=== PATIENT | female | born 1955 | race Caucasian/White ===

== ENCOUNTER → 2017-10-22 | Outpatient (CLI) | payer BC ==
[~2017-10-22] MED LIST: ALB18R INH; CYAN1000 IJ; CYAN1000 IM; DULO30CA35 PO; DULO60CA56 PO; FLUT16SP19 NS; FLUT1DIS28 IH; LOR1 PO; METH4TAB66 PO; MONT10TA PO
== END ==
LOC: LAB 08:00 → CT 15:00 → EDSTATUS 10-25 14:59
PROVIDERS: ATTEND Urology
DX: N20.0 Calculus of kidney (principal); R31.29 Other microscopic hematuria
CPT/HCPCS: 36415; 82565

== ENCOUNTER 2017-10-24 23:28 | Emergency (ER) | payer BC ==
--- NOTE | 2017-10-24 23:53 | ER Report ---
History and Physical Time Seen By : 23:45 Hx. of Stated Complaint: PATIENT STATES SHE HAS PAIN IN HER BACK; FEELS LIKE A ROCK; HASNT PEED SINCE 5 PM HPI/ROS CHIEF COMPLAINT: flank and abdominal pain, inability to urinate for 7 hours. HISTORY OF PRESENT ILLNESS: This is a 62 year old female. She is in severe pain. 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 Workup in process with Dr. Renee. She is scheduled to have a CT scan tomorrow morning and was in the process of doing her instructions for hydration tonight. Had 2 liters of fluid and has not been able to urinate. Having increased pressure in the bladder, across the lower abdomen in both directions and flank pain on the left. She denies fevers or chills. Is nauseated. Allergies: Coded Allergies: amitriptyline (Verified Allergy, Severe, SHORTNESS OF BREATH, 10/24/17) throat closed butorphanol (Verified Allergy, Severe, CONVULSIONS, 10/24/17) droperidol (Verified Allergy, Severe, Convulsions, 10/24/17) duloxetine (Verified Allergy, Severe, RASH, URINARY RETENTION, SHORTNESS OF BREATH, 10/24/17) metoclopramide (Verified Allergy, Intermediate, "[place]", 10/24/17) morphine (Verified Allergy, Intermediate, Severe Headache, Sleeplessness, Anxiety, 10/24/17) cat dander (Verified Allergy, Unknown, Unknown, 10/24/17) grass pollen (Verified Allergy, Unknown, Unknown, 10/24/17) "Justin Grass" Home Meds Active Scripts Methylprednisolone (METHYLPREDNISOLONE) 4 Mg Tab.ds.pk, 4 MG PO DIRECTED, #1 TAB Prov:ORALIA HALEY MD 07/07/17 Lorazepam (LORAZEPAM) 1 Mg Tab, 0.5-1 TAB PO BID Y for ANXIETY, #20 TAB Prov:ORALIA HALEY MD 07/07/17 Cyanocobalamin (Vitamin B-12) (CYANOCOBALAMIN INJECTION) 1,000 Mcg/1 Ml Vial, 1000 MCG IM DIRECTED, #4 VIAL 6 Refills 1000 mcg x once a week x 2 1000 mcg x EO week x 2 than once a month Prov:ORALIA HALEY MD 07/01/17 Reported Medications Albuterol Sulfate (VENTOLIN HFA) 18 Gm Inh, 1-2 PUFF INH 3-4XD Y for DYSPNEA, INH 06/14/17 Fluticasone/Salmeterol (ADVAIR 250-50 DISKUS) 1 Each Disk.w.dev, 1-2 SPRAY IH QDAY 06/14/17 Fluticasone Prop 50 Mcg Ns (FLONASE 50 MCG NS) 16 Gm [place].susp, 1-2 SPRAY NS BID, BOT 06/14/17 Montelukast Sodium (SINGULAIR) 10 Mg Tablet, 1 TAB PO QDAY, TAB 06/14/17 Reviewed Nurses Notes: Yes Smoking Status: Never Smoker Constitutional Vital Sign - Last 24 Hours 10/24/17 10/24/17 10/25/17 10/25/17 23:32 23:33 00:15 00:30 Temp 98.6 Pulse 111 Resp 18 B/P (MAP) 132/77 (95) 132/77 144/117 (126) 123/83 (96) Pulse Ox 96 O2 Delivery Room Air 10/25/17 10/25/17 10/25/17 10/25/17 01:00 01:05 01:30 01:51 Pulse 83 B/P (MAP) 123/76 (92) ???/??? (1665) 126/75 (92) Pulse Ox 94 10/25/17 10/25/17 10/25/17 10/25/17 02:00 02:05 02:30 02:48 Pulse 74 71 B/P (MAP) 113/80 (91) 103/59 (74) Pulse Ox 92 10/25/17 10/25/17 10/25/17 02:53 03:00 03:05 Pulse 66 70 B/P (MAP) 110/66 (81) Pulse Ox 91 97 Physical Exam General Appearance: The patient is alert. Acute distress because of pain. Eyes: Pupils are equal, round. No pallor, injection or icterus. ENT: Mucous membranes are moist. Normal oral mucosa. Posterior oropharynx is normal. Neck: Supple and non tender. Respiratory: Lungs are clear to auscultation. Cardiovascular: Regular rate and rhythm. No murmurs, gallops or rubs. Normal capillary refill. Gastrointestinal: Abdomen is soft, tender in the suprapubic and the left flank areas. Nondistended. Normal active bowel sounds. Some left, but no right costovertebral angle tenderness with percussion. Neurological: Alert and oriented x3. Skin: Warm and dry. Musculoskeletal: Extremities are nontender. DIFFERENTIAL DIAGNOSIS: After history and physical exam, differential diagnosis was considered for suprapubic and flank pain including but not limited to musculoskeletal causes, kidney stone, urinary infectious process and urinary retention. Medical Decision Making Data Points Result Diagram: 10/25/17 0002 10/25/17 0002 Laboratory Hematology Test 10/25/17 00:02 10/25/17 00:13 Red Blood Count 4.74 M/uL (4.17-5.56) Mean Corpuscular Volume 93.2 fL (80.0-96.0) Mean Corpuscular Hemoglobin 31.8 pg (26.0-33.0) Mean Corpuscular Hemoglobin Concent 34.1 g/dL (32.0-36.0) Red Cell Distribution Width 14.2 % (11.5-14.5) Mean Platelet Volume 8.9 fL (7.2-11.1) Neutrophils (%) (Auto) 74.9 % (39.4-72.5) Lymphocytes (%) (Auto) 16.6 % (17.6-49.6) Monocytes (%) (Auto) 5.7 % (4.1-12.4) Eosinophils (%) (Auto) 1.7 % (0.4-6.7) Basophils (%) (Auto) 1.1 % (0.3-1.4) Nucleated RBC Relative Count (auto) 0.0 /100WBC Neutrophils # (Auto) 7.8 K/uL (2.0-7.4) Lymphocytes # (Auto) 1.7 K/uL (1.3-3.6) Monocytes # (Auto) 0.6 K/uL (0.3-1.0) Eosinophils # (Auto) 0.2 K/uL (0.0-0.5) Basophils # (Auto) 0.1 K/uL (0.0-0.1) Nucleated RBC Absolute Count (auto) 0.01 K/uL Sodium Level 136 mmol/L (137-145) Potassium Level 3.7 mmol/L (3.5-5.0) Chloride Level 104 mmol/L (98-107) Carbon Dioxide Level 22 mmol/L (22-31) Blood Urea Nitrogen 22 mg/dl (7-18) Creatinine 0.70 mg/dl (0.52-1.04) Glomerular Filtration Rate Calc > 60.0 Random Glucose 95 mg/dl (75-110) Calcium Level 10.3 mg/dl (8.4-10.2) Total Bilirubin 0.3 mg/dl (0.2-1.3) Aspartate Amino Transf (AST/SGOT) 17 U/L (0-35) Alanine Aminotransferase (ALT/SGPT) 28 U/L (0-56) Alkaline Phosphatase 84 U/L (0-126) Total Protein 6.7 gm/dl (6.3-8.2) Albumin 3.8 g/dl (3.5-5.0) Urine Color Yellow Urine Clarity Slightly-cloudy Urine pH 5.0 pH (4.8-9.5) Urine Specific [place] 1.027 Urine Protein Negative mg/dL (NEGATIVE) Urine Glucose (UA) Negative mg/dL (NEGATIVE) Urine Ketones Trace mg/dL (NEGATIVE) Urine Blood Large (NEGATIVE) Urine Nitrite Negative (NEGATIVE) Urine Bilirubin Negative (NEGATIVE) Urine Urobilinogen 2.0 mg/dL (0.2-1.9) Urine Leukocyte Esterase Negative (NEGATIVE) Urine RBC 348 /HPF (0-2/HPF) Urine WBC 4 /HPF (0-5/HPF) Urine Squamous Epithelial Cells Many /LPF (NONE-FEW) Urine Bacteria Negative /HPF (NONE-FEW) Urine Hyaline Casts Few /LPF (NONE-FEW) Urine Mucus Few /HPF (NONE-FEW) Chemistry Test 10/25/17 00:02 10/25/17 00:13 White Blood Count 10.4 k/uL (4.5-11.0) Red Blood Count 4.74 M/uL (4.17-5.56) Hemoglobin 15.1 g/dL (12.0-16.0) Hematocrit 44.2 % (34.0-47.0) Mean Corpuscular Volume 93.2 fL (80.0-96.0) Mean Corpuscular Hemoglobin 31.8 pg (26.0-33.0) Mean Corpuscular Hemoglobin Concent 34.1 g/dL (32.0-36.0) Red Cell Distribution Width 14.2 % (11.5-14.5) Platelet Count 299 K/uL (150-450) Mean Platelet Volume 8.9 fL (7.2-11.1) Neutrophils (%) (Auto) 74.9 % (39.4-72.5) Lymphocytes (%) (Auto) 16.6 % (17.6-49.6) Monocytes (%) (Auto) 5.7 % (4.1-12.4) Eosinophils (%) (Auto) 1.7 % (0.4-6.7) Basophils (%) (Auto) 1.1 % (0.3-1.4) Nucleated RBC Relative Count (auto) 0.0 /100WBC Neutrophils # (Auto) 7.8 K/uL (2.0-7.4) Lymphocytes # (Auto) 1.7 K/uL (1.3-3.6) Monocytes # (Auto) 0.6 K/uL (0.3-1.0) Eosinophils # (Auto) 0.2 K/uL (0.0-0.5) Basophils # (Auto) 0.1 K/uL (0.0-0.1) Nucleated RBC Absolute Count (auto) 0.01 K/uL Glomerular Filtration Rate Calc > 60.0 Calcium Level 10.3 mg/dl (8.4-10.2) Total Bilirubin 0.3 mg/dl (0.2-1.3) Aspartate Amino Transf (AST/SGOT) 17 U/L (0-35) Alanine Aminotransferase (ALT/SGPT) 28 U/L (0-56) Alkaline Phosphatase 84 U/L (0-126) Total Protein 6.7 gm/dl (6.3-8.2) Albumin 3.8 g/dl (3.5-5.0) Urine Color Yellow Urine Clarity Slightly-cloudy Urine pH 5.0 pH (4.8-9.5) Urine Specific [place] 1.027 Urine Protein Negative mg/dL (NEGATIVE) Urine Glucose (UA) Negative mg/dL (NEGATIVE) Urine Ketones Trace mg/dL (NEGATIVE) Urine Blood Large (NEGATIVE) Urine Nitrite Negative (NEGATIVE) Urine Bilirubin Negative (NEGATIVE) Urine Urobilinogen 2.0 mg/dL (0.2-1.9) Urine Leukocyte Esterase Negative (NEGATIVE) Urine RBC 348 /HPF (0-2/HPF) Urine WBC 4 /HPF (0-5/HPF) Urine Squamous Epithelial Cells Many /LPF (NONE-FEW) Urine Bacteria Negative /HPF (NONE-FEW) Urine Hyaline Casts Few /LPF (NONE-FEW) Urine Mucus Few /HPF (NONE-FEW) Urinalysis Test 10/25/17 00:13 Urine Color Yellow Urine Clarity Slightly-cloudy Urine pH 5.0 pH (4.8-9.5) Urine Specific [place] 1.027 Urine Protein Negative mg/dL (NEGATIVE) Urine Glucose (UA) Negative mg/dL (NEGATIVE) Urine Ketones Trace mg/dL (NEGATIVE) Urine Blood Large (NEGATIVE) Urine Nitrite Negative (NEGATIVE) Urine Bilirubin Negative (NEGATIVE) Urine Urobilinogen 2.0 mg/dL (0.2-1.9) Urine Leukocyte Esterase Negative (NEGATIVE) Urine RBC 348 /HPF (0-2/HPF) Urine WBC 4 /HPF (0-5/HPF) Urine Squamous Epithelial Cells Many /LPF (NONE-FEW) Urine Bacteria Negative /HPF (NONE-FEW) Urine Hyaline Casts Few /LPF (NONE-FEW) Urine Mucus Few /HPF (NONE-FEW) Microbiology Microbiology Date/Time Source Procedure Growth Status 10/25/17 00:13 Cath Urine Urine Culture - Final No growth Complete EKG/Imaging Imaging EXAMINATION: CT abdomen and pelvis without and with IV contrast (CT urogram) HISTORY: Left flank pain. Bladder mass. TECHNIQUE: Axial CT images of the abdomen and pelvis were initially obtained without IV contrast. Axial CT images of the abdomen and pelvis were then obtained with IV contrast, utilizing a split bolus technique with combined nephrographic and excretory delayed imaging performed at 8 minutes. Coronal and sagittal 2D reconstructed images were obtained. One of the following dose optimization techniques was utilized in the performance of this exam: Automated exposure control; adjustment of the mA and/ or kV according to the patient's size; or use of an iterative reconstruction technique. Specific details can be referenced in the facility's radiology CT exam operational policy. Contrast: 125 mL of IV Isovue-370. COMPARISON: None. FINDINGS: Right kidney and ureter: Normal size and morphology of the right kidney, measuring 13.3 cm in length. No right-sided urinary calculi or hydronephrosis. Focal cortical scarring along the upper pole of the right kidney. There are small renal cysts, measuring up to 1.2 cm in the upper pole. No suspicious enhancing renal mass. The renal collecting system and ureter are well opacified and unremarkable on delayed imaging, without wall thickening or suspicious filling defect. Left kidney and ureter: Single punctate 1 mm nonobstructing calculus in the mid left kidney. Multifocal cortical scarring in the mid and upper left kidney. The left kidney measures 10.3 cm in length. There are several small cysts in the mid and upper left kidney, measuring up to 1.6 cm. There are 2 separate subcentimeter fat density lesions in the mid and lower left kidney, measuring up to 8 mm, compatible with small angiomyolipomas. There is a partially exophytic and hyperdense 1.1 cm lesion arising from the lower pole of the left kidney. This demonstrates no appreciable enhancement on postcontrast imaging and likely represents a small hemorrhagic cyst. No suspicious enhancing renal mass. No hydronephrosis. The renal collecting system and ureter are well opacified on delayed imaging, without suspicious filling defect. Urinary bladder: Mildly distended, with a Lambert catheter in place. No localized wall thickening or evidence of a bladder mass. Liver: There are multiple small cysts in the liver. This includes a dominant 3.5 cm cyst in the right hepatic lobe inferiorly, with additional subcentimeter cysts. Gallbladder and bile ducts: Cholecystectomy. No bile duct dilatation. Spleen: Calcified granulomas in the spleen. Pancreas: Negative. Adrenal glands: Negative. Bowel and peritoneum: The small bowel and colon are normal in caliber, without evidence of obstruction or any focal inflammatory process. Scattered colonic diverticulosis, without evidence of diverticulitis. Unremarkable appendix in the right lower abdomen. No free fluid or free intraperitoneal air. Small hiatal hernia. Pelvic structures: Hysterectomy. Lymph node assessment: Negative. Vessels: Scattered vascular calcifications. Normal caliber abdominal aorta. Musculoskeletal: Negative. Body wall: Small fat-containing umbilical hernia. Lung bases: Calcified granuloma in the left lower lobe. IMPRESSION: 1. Single punctate nonobstructing calculus in the left kidney. No hydronephrosis or obstructing calculi. 2. Multifocal cortical scarring in the upper left kidney. Left kidney contains several small cysts as well as 2 subcentimeter angiomyolipomas. No suspicious enhancing renal mass on either side. 3. Normal CT appearance of the urinary bladder, with a Lambert catheter in place. No visualized bladder mass. 4. No acute intra abdominal findings. 5. Prior cholecystectomy and hysterectomy. 6. Colonic diverticulosis. 7. Unremarkable appendix. 8. Small hiatal hernia. Report Dictated By: Jacob Campos MD at 10/25/2017 2:07 AMReport E-Signed By: Jacob Campos MD at 10/25/2017 2:23 AM ED Course/Re-evaluation Clinical Indication for ER IV: IV Access ED Course Lambert catheter placed with only a small amount of urine output. Blood on urinalysis but no sign of infection. Urine culture ordered. CBC and CMP unremarkable, normal kidney function. CT of the abdomen and pelvis were obtained , done according to what Dr. Renee was going to have done later today. See imaging above. No acute abnormality noted. Patient is feeling better with good urine output. No further pain. She will return home and follow-up with Dr. Renee. Decision to Disposition Date: Oct 25, 2017 Decision to Disposition Time: 03:19 Depart Departure Latest Vital Signs Vital Signs Date Time Temp Pulse Resp B/P (MAP) Pulse Ox O2 Delivery O2 Flow Rate FiO2 10/25/17 03:05 70 97 10/25/17 03:00 110/66 (81) 10/24/17 23:33 98.6 18 Room Air Impression: Primary Impression: Flank pain, acute Condition: Improved Disposition: HOME OR SELF-CARE Referrals: ORALIA HALEY MD (PCP) Patient Instructions: Flank Pain (ED) Additional Instructions: Please call Dr. Renee later this morning and let him know you were here in the ER tonight. He will help decide what follow-up you need. We are providing a take-home pack of Lortab 5/325, take one every 4 hours as needed for pain. Zofran 4mg oral dissolving tablet, take one every 6 hours as needed for nausea. Return to the ER for re-evaluation if needed for recurrence of severe pain. KELL NICHOLS MD Oct 24, 2017 23:53
[2017-10-25] MEDS ORDERED: HYDROmorphone* 1 MG/ML 1 MG/ML ML IVP ONE ×2 (00:05→00:55)
[2017-10-25] MEDS ORDERED: ONDANSETRON 4 MG/2 ML VIAL IVP ONE (00:05)
[2017-10-25] MEDS ORDERED: IOPAMIDOL 76% 75 ML INFUS BTL 75 ML ONE (01:01)
[2017-10-25] MEDS ORDERED: IOPAMIDOL 76% 50 ML INFUS BTL 50 ML ONE (01:31)
--- NOTE | 2017-10-25 02:27 | RADIOLOGY IMAGING REPORT ---
[place] [facility] [place] NAME: Hailey Hampton : 1955 MR: [id number] V: [id number] EXAM DATE: ORDERING PHYSICIAN: KELL NICHOLS TECHNOLOGIST: Location: [facility] Patient: Hailey Hampton : 1955 Visit/Account:[id number] Date of Sevice: 10/25/2017 ADDENDUM #1 ADDENDUM: At the provider's request, I have reviewed the CT scan from 10/25/2017. Additional findings include several calcifications measuring less than 5 mm in diameter in the upper and lower poles of the left kidney, and two calcifications measuring less than 3 mm in diameter in the right side of the urinary bladder. Report Dictated By: Hong Quick MD at 10/25/2017 12:18 PM Report E-Signed By: Hong Quick MD at 10/25/2017 12:22 PM ORIGINAL REPORT EXAMINATION: CT abdomen and pelvis without and with IV contrast (CT urogram) HISTORY: Left flank pain. Bladder mass. TECHNIQUE: Axial CT images of the abdomen and pelvis were initially obtained without IV contrast. Axial CT imag es of the abdomen and pelvis were then obtained with IV contrast, utilizing a split bolus technique w ith combined nephrographic and excretory delayed imaging performed at 8 minutes. Coronal and sagitta l 2D reconstructed images were obtained. One of the following dose optimization techniques was utilized in the performance of this exam: Autom ated exposure control; adjustment of the mA and/or kV according to the patient's size; or use of an i terative reconstruction technique. Specific details can be referenced in the facility's radiology C T exam operational policy. Contrast: 125 mL of IV Isovue-370. COMPARISON: None. FINDINGS: Right kidney and ureter: Normal size and morphology of the right kidney, measuring 13.3 cm in length. No right-sided urinary calculi or hydronephrosis. Focal cortical scarring along the upper pole of th e right kidney. There are small renal cysts, measuring up to 1.2 cm in the upper pole. No suspicious enhancing renal mass. The renal collecting system and ureter are well opacified and unremarkable on d elayed imaging, without wall thickening or suspicious filling defect. Left kidney and ureter: Single punctate 1 mm nonobstructing calculus in the mid left kidney. Multifoc al cortical scarring in the mid and upper left kidney. The left kidney measures 10.3 cm in length. Th ere are several small cysts in the mid and upper left kidney, measuring up to 1.6 cm. There are 2 sep arate subcentimeter fat density lesions in the mid and lower left kidney, measuring up to 8 mm, kj tible with small angiomyolipomas. There is a partially exophytic and hyperdense 1.1 cm lesion arising from the lower pole of the left kidney. This demonstrates no appreciable enhancement on postcontrast imaging and likely represents a small hemorrhagic cyst. No suspicious enhancing renal mass. No hydro nephrosis. The renal collecting system and ureter are well opacified on delayed imaging, without susp icious filling defect. Urinary bladder: Mildly distended, with a Lambert catheter in place. No localized wall thickening or ev idence of a bladder mass. Liver: There are multiple small cysts in the liver. This includes a dominant 3.5 cm cyst in the righ t hepatic lobe inferiorly, with additional subcentimeter cysts. Gallbladder and bile ducts: Cholecystectomy. No bile duct dilatation. Spleen: Calcified granulomas in the spleen. Pancreas: Negative. Adrenal glands: Negative. Bowel and peritoneum: The small bowel and colon are normal in caliber, without evidence of obstructi on or any focal inflammatory process. Scattered colonic diverticulosis, without evidence of diverticu litis. Unremarkable appendix in the right lower abdomen. No free fluid or free intraperitoneal air. S mall hiatal hernia. Pelvic structures: Hysterectomy. Lymph node assessment: Negative. Vessels: Scattered vascular calcifications. Normal caliber abdominal aorta. Musculoskeletal: Negative. Body wall: Small fat-c ntaining umbilical hernia. Lung bases: Calcified granuloma in the left lower lobe. IMPRESSION: 1. Single punctate nonobstructing calculus in the left kidney. No hydronephrosis or obstructing calcu li.2. Multifocal cortical scarring in the upper left kidney. Left kidney contains several small cysts as well as 2 subcentimeter angiomyolipomas. No suspicious enhancing renal mass on either side. 3. Normal CT appearance of the urinary bladder, with a Lambert catheter in place. No visualized bladder mass. 4. No acute intra-abdominal findings. 5. Prior cholecystectomy and hysterectomy. 6. Colonic diverticulosis. 7. Unremarkable appendix. 8. Small hiatal hernia. Report Dictated By: Jacob Campos MD at 10/25/2017 2:07 AM Report E-Signed By: Jacob Campos MD at 10/25/2017 2:23 AM WSN:[id number]
[2017-10-25 02:45] LABS: PLATELET COUNT, AUTOMATED 299 K/uL (150-450)
[2017-10-25 03:00] VITALS: BP 110/66
[2017-10-25] MEDS ORDERED: ACET/HYDROC 5/325MG TH ER ONLY 2 TAB/BOTTLE PO ONE (03:20)
[2017-10-25] MEDS ORDERED: ONDANSETRON 4 MG ODT TH SL ONE (03:20)
== END 2017-10-25 03:31 | disposition home or self-care (01) ==
LOC: ER 10-25 00:09
DX: R10.30 Lower abdominal pain, unspecified (principal); N28.89 Other specified disorders of kidney and ureter; N32.89 Other specified disorders of bladder; N28.1 Cyst of kidney, acquired; K57.30 Diverticulosis of large intestine without perforation or abscess without bleeding; K44.9 Diaphragmatic hernia without obstruction or gangrene
CPT/HCPCS: 74178; 81001; 85025; 87088; 96374; 96375; 96376; 99284; J1170; J2405; Q9967; S0119; 82040; 82247; 82310; 82374; 82435; 82565; 82947; 84075; 84132; 84155; 84295; 84450; 84460; 84520

== ENCOUNTER → 2017-10-26 | Outpatient (REF) | payer BC | LOC: ZZSENDIN 11:40 | PROVIDERS: ATTEND Urology | DX: R31.1 Benign essential microscopic hematuria (principal) | CPT/HCPCS: 88108 ==

== ENCOUNTER → 2018-01-21 | Outpatient (CLI) | payer BC ==
[~2018-01-21] MED LIST changes: +IOPAMIDOL 76% 150 ML INFUS BTL 150 ML ONE; +IOPAMIDOL 76% 75 ML INFUS BTL 0 ML ONE; +NS 0.9% 25 ML BAG 75 ML ONE
--- NOTE | 2018-01-21 17:05 | RADIOLOGY IMAGING REPORT ---
FACILITY: PATIENT NAME: Hailey Hampton : 1955 MR: [id number] V: [id number] EXAM DATE: ORDERING PHYSICIAN: CHARLINE HUGHES TECHNOLOGIST: Location: [facility] Patient: Hailey Hampton : 1955 Visit/Account:[id number] Date of Sevice: 01/21/2018 ABDOMEN/PELVIS W/WO CONTRAST EXAMINATION: CT Abdomen W/O Contrast CT Abdomen W/ Contrast CT Pelvis W/O Contrast CT Pelvis W/ Contrast HISTORY: Bosniak 2 renal cysts, microhematuria TECHNIQUE: CT Urogram Protocol: The patient received preliminary hydration. A non-intravenous contrast enhanced spiral scan was obtained of the kidneys, ureters and bladder. Pos t intravenous contrast enhanced spiral scan of the kidneys, ureters and bladder was obtained between 7 and 8 minutes post injection in the supine position. One of the following dose optimization techniques was utilized in the performance of this exam: Autom ated exposure control; adjustment of the mA and/or kV according to the patient's size; or use of an i terative reconstruction technique. Specific details can be referenced in the facility's radiology C T exam operational policy. Contrast: 125 cc mL of IV Isovue-370 COMPARISON STUDIES: CT scan 10/25/2017 FINDINGS: Please note that this examination was tailored for detailed assessment of the kidneys, ureters and bl adder. Portions of the upper abdominal viscera may not be included. Kidneys: Several small nonobstructing stones are noted in the left kidney. There is a dilated calyx superior pole left kidney with some nonobstructing stones. Stones measure up to 3 mm. Some benign renal lesions are also identified. 7 mm benign fatty angiomyolipoma is noted midpole left kidney image 55. Several tiny fatty angiomyolipomas are noted midpole right kidney measuring 1 to 2 mm. 4 mm angiomyolipoma superior pole right kidney is noted image 33. Some benign renal cortical cysts are also noted. High density likely proteinaceous or hemorrhagic cys t lower pole left kidney measures 7 mm and is stable. Dilated left renal calyx is noted likely from p rior scarring. Some surrounding benign cyst midpole left kidney are stable. Ureters: Single patent ureters are documented the bladder. Bladder: Negative Liver / biliary: Gallbladder is absent. There is fatty infiltration of liver. Scattered benign hepat ic cysts are noted largest in segment 5 measures 3.9 x 3.7 cm Pancreas: Negative Spleen: Calcified granulomas are noted in the spleen. Adrenal glands: Fullness of the adrenal glands likely reflects hyperplasia. Pelvic structures: Negative Bowel / peritoneum / mesentery: There is colonic diverticulosis. Small hiatal hernia is noted. Vessels: Atherosclerotic calcification of the aorta and iliac vessels is noted. Musculoskeletal / Body wall: Negative Lymph node assessment: Negative Lower chest: Calcified granuloma left lower lobe is noted. IMPRESSION: 1. Small nonobstructing stones are noted in the left kidney measuring up to 3 mm. No obstructing re nal or ureteral stones. 2. Renal cortical scarring of the left kidney and several dilated calyces are noted. 3. Scattered small benign renal angiomyolipomas in both kidneys described above. In addition there ar e some benign cysts in the left kidney. No concerning renal or urothelial masses. 4. Numerous other chronic findings detailed above. Report Dictated By: Shalom Lazaro MD at 01/21/2018 4:45 PM Report E-Signed By: Shalom Lazaro MD at 01/21/2018 5:01 PM WSN:[email or web address]
== END ==
LOC: CT 02:07
PROVIDERS: ATTEND Urology
DX: N20.0 Calculus of kidney (principal); N28.89 Other specified disorders of kidney and ureter; N28.1 Cyst of kidney, acquired
CPT/HCPCS: 36415; 74178; 82565; Q9967

== ENCOUNTER 2018-01-25 15:00 | Emergency (ER) | payer BC ==
[~2018-01-25 15:00] MED LIST changes: -IOPAMIDOL 76% 150 ML INFUS BTL 150 ML ONE; -IOPAMIDOL 76% 75 ML INFUS BTL 0 ML ONE; -NS 0.9% 25 ML BAG 75 ML ONE
--- NOTE | 2018-01-25 15:09 | ER Report ---
History and Physical Time Seen By : 15:09 Hx. of Stated Complaint: irregular heart rate sob x 2 weeks HPI/ROS Patient is a 62-year-old female has a history of regular heartbeat has had PACs in the past states that she was out working in the garden she has seasonal allergies felt like her seasonal allergies were worse than usual thought she was having palpitations at the time those have since stopped M is asymptomatic presently Remainder of the 14 system rev: Yes Allergies: Coded Allergies: amitriptyline (Verified Allergy, Severe, SHORTNESS OF BREATH, 01/25/18) throat closed butorphanol (Verified Allergy, Severe, CONVULSIONS, 01/25/18) droperidol (Verified Allergy, Severe, Convulsions, 01/25/18) duloxetine (Verified Allergy, Severe, RASH, URINARY RETENTION, SHORTNESS OF BREATH, 01/25/18) metoclopramide (Verified Allergy, Intermediate, "Wry Neck", 01/25/18) morphine (Verified Allergy, Intermediate, Severe Headache, Sleeplessness, Anxiety, 01/25/18) cat dander (Verified Allergy, Unknown, Unknown, 01/25/18) grass pollen (Verified Allergy, Unknown, Unknown, 01/25/18) "Justin Grass" Home Meds Active Scripts Lorazepam (LORAZEPAM) 1 Mg Tab, 0.5-1 TAB PO BID Y for ANXIETY, #20 TAB Prov:ORALIA HALEY MD 07/07/17 Cyanocobalamin (Vitamin B-12) (CYANOCOBALAMIN INJECTION) 1,000 Mcg/1 Ml Vial, 1000 MCG IM DIRECTED, #4 VIAL 6 Refills 1000 mcg x once a week x 2 1000 mcg x EO week x 2 than once a month Prov:ORALIA HALEY MD 07/01/17 Reported Medications Hydroxychloroquine Sulfate (HYDROXYCHLOROQUINE SULFATE) 200 Mg Tablet, BID 01/25/18 Ondansetron (ONDANSETRON ODT) 4 Mg Tab.rapdis, PRN 01/25/18 Albuterol Sulfate (VENTOLIN HFA) 18 Gm Inh, 1-2 PUFF INH 3-4XD Y for DYSPNEA, INH 06/14/17 Fluticasone/Salmeterol (ADVAIR 250-50 DISKUS) 1 Each Disk.w.dev, 1-2 SPRAY IH QDAY 06/14/17 Fluticasone Prop 50 Mcg Ns (FLONASE 50 MCG NS) 16 Gm [place].susp, 1-2 SPRAY NS BID, BOT 06/14/17 Montelukast Sodium (SINGULAIR) 10 Mg Tablet, 1 TAB PO QDAY, TAB 06/14/17 Discontinued Scripts Methylprednisolone (METHYLPREDNISOLONE) 4 Mg Tab.ds.pk, 4 MG PO DIRECTED, #1 TAB Prov:ORALIA HALEY MD 07/07/17 Past Medical/Surgical History History kidney stones, PACs, allergic rhinitis, had a right mesh repair in the lung for a bleb Reviewed Nurses Notes: Yes Old Medical Records Reviewed: Yes Smoking Status: Never Smoker Hx Substance Use Disorder: No Hx Alcohol Use: No Family History of: HTN Constitutional Vital Sign - Last 24 Hours 01/25/18 01/25/18 01/25/18 01/25/18 15:05 15:07 15:15 15:30 Temp 99.3 Pulse 88 77 81 Resp 16 B/P (MAP) 138/102 138/102 (114) 141/91 (108) Pulse Ox 95 95 90 O2 Delivery Room Air 01/25/18 01/25/18 01/25/18 01/25/18 15:35 15:50 15:55 16:00 Pulse 68 80 B/P (MAP) 120/68 (85) Pulse Ox 93 96 94 01/25/18 01/25/18 01/25/18 01/25/18 16:10 16:25 16:30 16:45 Pulse 69 63 58 63 Resp 16 B/P (MAP) 118/68 (85) Pulse Ox 92 93 94 01/25/18 01/25/18 01/25/18 01/25/18 16:45 16:51 17:15 17:30 Pulse 65 70 69 Resp 16 B/P (MAP) 95/87 (90) Pulse Ox 94 88 86 O2 Delivery Room Air 01/25/18 01/25/18 01/25/18 01/25/18 17:35 17:50 18:00 18:05 Pulse 67 77 71 B/P (MAP) 117/81 (93) Pulse Ox 94 92 91 01/25/18 01/25/18 01/25/18 01/25/18 18:10 18:15 18:20 18:21 Pulse 63 64 71 B/P (MAP) 121/73 (89) Pulse Ox 92 93 94 Intake and Output 01/25/18 01/25/18 01/26/18 15:00 23:00 07:00 Intake Total 1000 ml Balance 1000 ml Physical Exam Patient 62-year-old female alert oriented anxious HNT has normocephalic/ atraumatic tympanic membranes are non-reddened throat is non-reddened neck is supple no JVD heart rate occasional irregularity lungs are clear laterally abdomen is soft bowel sounds 4 quadrants moves all extremities no peripheral pulses Medical Decision Making Data Points Result Diagram: 01/25/18 1518 01/25/18 1518 Laboratory Hematology Test 01/25/18 15:18 01/25/18 17:44 Red Blood Count 4.66 M/uL (4.17-5.56) Mean Corpuscular Volume 93.0 fL (80.0-96.0) Mean Corpuscular Hemoglobin 32.3 pg (26.0-33.0) Mean Corpuscular Hemoglobin Concent 34.7 g/dL (32.0-36.0) Red Cell Distribution Width 13.8 % (11.5-14.5) Mean Platelet Volume 9.2 fL (7.2-11.1) Neutrophils (%) (Auto) 66.7 % (39.4-72.5) Lymphocytes (%) (Auto) 24.7 % (17.6-49.6) Monocytes (%) (Auto) 5.9 % (4.1-12.4) Eosinophils (%) (Auto) 1.5 % (0.4-6.7) Basophils (%) (Auto) 1.2 % (0.3-1.4) Nucleated RBC Relative Count (auto) 0.1 /100WBC Neutrophils # (Auto) 4.5 K/uL (2.0-7.4) Lymphocytes # (Auto) 1.7 K/uL (1.3-3.6) Monocytes # (Auto) 0.4 K/uL (0.3-1.0) Eosinophils # (Auto) 0.1 K/uL (0.0-0.5) Basophils # (Auto) 0.1 K/uL (0.0-0.1) Nucleated RBC Absolute Count (auto) 0.00 K/uL Activated Partial Thromboplast Time 27 seconds (23-35) D-Dimer Quantitative (PE/DVT) < 0.27 ug/ml (0-0.50) Sodium Level 139 mmol/L (137-145) Potassium Level 4.2 mmol/L (3.5-5.0) Chloride Level 106 mmol/L (98-107) Carbon Dioxide Level 24 mmol/L (22-31) Blood Urea Nitrogen 11 mg/dl (7-18) Creatinine 0.70 mg/dl (0.52-1.04) Glomerular Filtration Rate Calc > 60.0 Random Glucose 106 mg/dl (75-110) Calcium Level 10.3 mg/dl (8.4-10.2) Total Bilirubin 0.6 mg/dl (0.2-1.3) Aspartate Amino Transf (AST/SGOT) 18 U/L (0-35) Alanine Aminotransferase (ALT/SGPT) 23 U/L (0-56) Alkaline Phosphatase 89 U/L (0-126) B-Type Natriuretic Peptide 115 pg/ml (0-100) Total Protein 6.4 g/dl (6.3-8.2) Albumin 3.8 g/dl (3.5-5.0) Troponin I < 0.012 ng/ml Chemistry Test 01/25/18 15:18 01/25/18 17:44 White Blood Count 6.8 k/uL (4.5-11.0) Red Blood Count 4.66 M/uL (4.17-5.56) Hemoglobin 15.1 g/dL (12.0-16.0) Hematocrit 43.3 % (34.0-47.0) Mean Corpuscular Volume 93.0 fL (80.0-96.0) Mean Corpuscular Hemoglobin 32.3 pg (26.0-33.0) Mean Corpuscular Hemoglobin Concent 34.7 g/dL (32.0-36.0) Red Cell Distribution Width 13.8 % (11.5-14.5) Platelet Count 271 K/uL (150-450) Mean Platelet Volume 9.2 fL (7.2-11.1) Neutrophils (%) (Auto) 66.7 % (39.4-72.5) Lymphocytes (%) (Auto) 24.7 % (17.6-49.6) Monocytes (%) (Auto) 5.9 % (4.1-12.4) Eosinophils (%) (Auto) 1.5 % (0.4-6.7) Basophils (%) (Auto) 1.2 % (0.3-1.4) Nucleated RBC Relative Count (auto) 0.1 /100WBC Neutrophils # (Auto) 4.5 K/uL (2.0-7.4) Lymphocytes # (Auto) 1.7 K/uL (1.3-3.6) Monocytes # (Auto) 0.4 K/uL (0.3-1.0) Eosinophils # (Auto) 0.1 K/uL (0.0-0.5) Basophils # (Auto) 0.1 K/uL (0.0-0.1) Nucleated RBC Absolute Count (auto) 0.00 K/uL Activated Partial Thromboplast Time 27 seconds (23-35) D-Dimer Quantitative (PE/DVT) < 0.27 ug/ml (0-0.50) Glomerular Filtration Rate Calc > 60.0 Calcium Level 10.3 mg/dl (8.4-10.2) Total Bilirubin 0.6 mg/dl (0.2-1.3) Aspartate Amino Transf (AST/SGOT) 18 U/L (0-35) Alanine Aminotransferase (ALT/SGPT) 23 U/L (0-56) Alkaline Phosphatase 89 U/L (0-126) B-Type Natriuretic Peptide 115 pg/ml (0-100) Total Protein 6.4 g/dl (6.3-8.2) Albumin 3.8 g/dl (3.5-5.0) Troponin I < 0.012 ng/ml Coagulation Test 01/25/18 15:18 Activated Partial Thromboplast Time 27 seconds D-Dimer Quantitative (PE/DVT) < 0.27 ug/ml EKG/Imaging EKG Interpretation EKG 1528 normal sinus rhythm ventricular rate 82 QTCs 446 2nd EKG at 1730 to normal sinus ventricular rate 67 QTCs 452 Monitor Interpretation: Normal Sinus Rhythm ED Course/Re-evaluation Clinical Indication for ER IV: Hydration ED Course Initial lab work is normal patient states she did not take all her allergy meds this morning she feels maybe working in the garden that this may be allergic rhinitis flare is asymptomatic currently we'll give her a albuterol neb which she takes occasionally for her allergic symptoms I'm see if this makes her feel any better will repeat an EKG and troponin 2 hours Re-evaluation KAREN DIAGNOSIS BNP WAS SLIGHTLY ELEVATED WILL SEND TO PCP FOR ECHO AND FURTHER EVAL AND TREATMENT Decision to Disposition Date: Jan 25, 2018 Decision to Disposition Time: 18:15 Depart Departure Latest Vital Signs Vital Signs Date Time Temp Pulse Resp B/P (MAP) Pulse Ox O2 Delivery O2 Flow Rate FiO2 01/25/18 18:21 121/73 (89) 01/25/18 18:20 71 94 01/25/18 16:51 16 01/25/18 16:45 Room Air 01/25/18 15:05 99.3 Impression: Primary Impression: Anxiety and depression Additional Impression: Asthma Condition: Improved Disposition: HOME OR SELF-CARE Referrals: ORALIA HALEY MD (PCP) CARDIOLOGY 1 Week Problem Qualifiers CIERA GAN Jan 25, 2018 15:09
[2018-01-25] MEDS ORDERED: ONDA4TAB9 (15:12)
[2018-01-25] MEDS ORDERED: HYDR200T42 (15:12)
[2018-01-25] MEDS ORDERED: NS(*) 0.9% 1000 ML BAG 1,000 ML IV ONE (15:16)
[2018-01-25] MEDS ORDERED: ASPIRIN 81 MG CHEW PO ONE (15:20)
--- NOTE | 2018-01-25 15:34 | EKG ---
FACILITY: [facility] - [place] PATIENT NAME: JANET SIFUENTES : [id number] MR: [id number] V: [id number] EXAM DATE: ORDERING PHYSICIAN: CIERA GAN TECHNOLOGIST: DAVID Brito Reason : Blood Pressure : / mmHG Vent. Rate : 082 BPM Atrial Rate : 082 BPM P-R Int : 144 ms QRS Dur : 084 ms QT Int : 382 ms P-R-T Axes : 045 -07 062 degrees QTc Int : 446 ms Sinus rhythm Possible left atrial enlargement Poor R wave progression anteriorly Borderline left axis Abnormal ECG Confirmed by GELACIO DANIELLE ([id number]) on 01/25/2018 6:20:31 PM Referred By: Confirmed By:GELACIO DANIELLE
--- NOTE | 2018-01-25 15:52 | RADIOLOGY IMAGING REPORT ---
FACILITY: [facility] - [place] PATIENT NAME: Hailey Hampton : 1955 MR: [id number] V: [id number] EXAM DATE: ORDERING PHYSICIAN: CIERA GAN TECHNOLOGIST: Location: [facility] Patient: Hailey Hampton : 1955 Visit/Account:[id number] Date of Sevice: 01/25/2018 Exam type: CHEST SINGLE AP History: Chest Pain Comparison: June 14, 2017. Findings: Again noted is mild hyperexpansion of the lung liriano. There is mild chronic blunting of left costop hrenic angle. Calcified granulomas in the left lung base again noted. There is no evidence of acute appearing infiltrates, pleural effusions or pulmonary edema. Mild interstitial prominence of the summer ngs again noted IMPRESSION: 1. Hyperexpansion the lung liriano and mild interstitial prominence appears similar to the prior stud y although no evidence of acute pulmonary consolidation Report Dictated By: Ghazal Foley MD at 01/25/2018 3:46 PM Report E-Signed By: Ghazal Foley MD at 01/25/2018 3:48 PM WSN:[email or web address]
[2018-01-25 16:02] LABS: PLATELET COUNT, AUTOMATED 271 K/uL (150-450)
[2018-01-25] MEDS ORDERED: ALBUTEROL 2.5 MG/3 ML NEB NEB ONE (16:40)
[2018-01-25] MEDS ORDERED: FUROSEMIDE 20 MG TAB PO ONE (17:30)
[2018-01-25 18:21] VITALS: BP 121/73
--- NOTE | 2018-01-25 18:36 | EKG ---
FACILITY: [facility] PATIENT NAME: JANET SIFUENTES : [id number] MR: [id number] V: [id number] EXAM DATE: ORDERING PHYSICIAN: CIERA GAN TECHNOLOGIST: Test Reason : Blood Pressure : / mmHG Vent. Rate : 067 BPM Atrial Rate : 067 BPM P-R Int : 144 ms QRS Dur : 086 ms QT Int : 428 ms P-R-T Axes : 053 047 069 degrees QTc Int : 452 ms Sinus arrhythmia Decreased R wave progression anteriorly When compared with ECG of 25-JAN-2018 15:28, No significant change was found Confirmed by GELACIO DANIELLE ([id number]) on 01/25/2018 7:41:29 PM Referred By: Confirmed By:GELACIO DANIELLE
== END 2018-01-25 18:25 | disposition home or self-care (01) ==
LOC: ER 15:27
DX: J45.909 Unspecified asthma, uncomplicated (principal); F41.9 Anxiety disorder, unspecified; F32.9 Major depressive disorder, single episode, unspecified
CPT/HCPCS: 71045; 83880; 84484; 85025; 85379; 85730; 93005; 94640; 96360; 96361; 99284; J7030; J7613; 82040; 82247; 82310; 82374; 82435; 82565; 82947; 84075; 84132; 84155; 84295; 84450; 84460; 84520

== ENCOUNTER → 2018-03-15 | Outpatient (CLI) | payer BC ==
[~2018-03-15] MED LIST changes: +HYDR200T42; +ONDA4TAB9
--- NOTE | 2018-03-17 16:38 | RT HOLTER TEST ---
FACILITY: [facility] - [place] PATIENT NAME: JANET SIFUENTES : [id number] MR: [id number] V: [id number] EXAM DATE: ORDERING PHYSICIAN: CARLA BOWMAN TECHNOLOGIST: Hoa Hook-up date: 2018-03-15 10:58:00 Duration: 47:59:00 Test Indications: CP/PVC Medications: ON FILE 618450 QRS complexes 80452 Ventricular ectopics which represent 9 % of total QRS comp. 519 Supraventricular ectopics which represent <1 % of total QRS comp. * Paced QRS complexes which represent % of total QRS comp. VENTRICULAR ECTOPY 52227 Isolated 3774 Bigeminal Cycles 381 Couplets 17 Runs 51 Beats in Runs 3 Beats LONGEST at 140 BPM at 11:18:48 2018-03-15 3 Beats FASTEST at 205 BPM at 18:15:44 2018-03-16 SUPRAVENTRICULAR ECTOPY 516 Isolated 0 Couplets 1 Runs 3 Beats in Runs 3 Beats LONGEST at 150 BPM at 22:56:27 2018-03-15 3 Beats FASTEST at 150 BPM at 22:56:27 2018-03-15 HEART RATES 51 MIN at 04:52:37 2018-03-16 89 AVG 157 MAX at 15:25:26 2018-03-16 LONGEST RR 1.480 secs at 03:50:45 2018-03-16 S-T LEVELS Channel 1 -12.800 mm MIN at 10:58:00 2018-03-15 -12.800 mm MAX at 10:58:00 2018-03-15 Channel 2 -12.800 mm MIN at 10:58:00 2018-03-15 -12.800 mm MAX at 10:58:00 2018-03-15 Channel 3 -12.800 mm MIN at 10:58:00 2018-03-15 -12.800 mm MAX at 10:58:00 2018-03-15 Occasional supraventricular ectopy with one short run of three beats. Frequent ventricular ectopy with frequent bigeminy and many couplets. Several three beat runs were al so recorded. No pauses were recorded. Confirmed by GELACIO DANIELLE ([id number]) on 03/17/2018 4:38:25 PM Referred By: Overread By: GELACIO DANIELLE
== END ==
LOC: RESP 01:26
PROVIDERS: ATTEND Internal Medicine Cardiovascular Disease
DX: I20.8 Other forms of angina pectoris (principal); R06.09 Other forms of dyspnea
CPT/HCPCS: 93017; 93225; 93325; 93350

== ENCOUNTER → 2018-05-30 | Outpatient (CLI) | payer BC | LOC: RESP 01:29 | PROVIDERS: ATTEND Internal Medicine | DX: J98.4 Other disorders of lung (principal) | CPT/HCPCS: 94060; 94726; 94729 ==

== ENCOUNTER → 2018-05-30 | Outpatient (CLI) | payer BC ==
[2018-05-30 11:58] LABS: LDL CHOLESTEROL 111 mg/dl
== END ==
LOC: LAB 10:09
PROVIDERS: ATTEND Internal Medicine Cardiovascular Disease
DX: I20.8 Other forms of angina pectoris (principal); R06.09 Other forms of dyspnea; R00.2 Palpitations
CPT/HCPCS: 36415; 82040; 82247; 82310; 82374; 82435; 82465; 82565; 82947; 83718; 84075; 84132; 84155; 84295; 84450; 84460; 84478; 84520; 85027

== ENCOUNTER → 2018-06-28 | Outpatient (CLI) | payer BC ==
--- NOTE | 2018-06-28 15:48 | RADIOLOGY IMAGING REPORT ---
FACILITY: [facility] - [place] PATIENT NAME: Hailey Hampton : 1955 MR: [id number] V: [id number] EXAM DATE: ORDERING PHYSICIAN: CHARLINE HUGHES TECHNOLOGIST: Location: [facility] Patient: Hailey Hampton : 1955 Visit/Account:[id number] Date of Sevice: 06/28/2018 KIDNEYS HISTORY: Kidney stones COMPARISON: None FINDINGS: Kidneys: Right kidney- 12.49 cm in length with normal renal parenchyma. No evidence of hydronephrosis. There is a benign simple cyst in the upper pole, 1.5 cm.. Left kidney- 12.1 cm in length with no evidence of hydronephrosis. There is a well-circumscribed ech ogenic lesion, with isoechoic through-transmission in the midportion that measures 1.0 cm. There is a cyst in the midpole, which is anechoic and measures 2.1 cm. There is no suspicious mass.. Uniform and symmetric blood flow in each kidney by Doppler ultrasound. Hydronephrosis: None. Bladder: Unremarkable. Abdominal aorta and IVC: Patent by Doppler ultrasound. IMPRESSION: 1. Several small cysts in the left kidney. These are unchanged from comparison CT abdomen and pelvi s 01/21/2018. 2. Interval cyst right kidney. 2. No evidence of right or left suspicious mass. Report Dictated By: Leo Saavedra at 06/28/2018 3:39 PM Report E-Signed By: Leo Saavedra at 06/28/2018 3:43 PM WSN:[email or web address]
== END ==
LOC: US 00:39
PROVIDERS: ATTEND Urology
DX: N20.0 Calculus of kidney (principal); N28.1 Cyst of kidney, acquired; N28.89 Other specified disorders of kidney and ureter; R31.29 Other microscopic hematuria
CPT/HCPCS: 76705

== ENCOUNTER → 2019-01-16 | Outpatient (CLI) | payer BC ==
--- NOTE | 2019-01-16 15:15 | RADIOLOGY IMAGING REPORT ---
FACILITY: [facility] [place] PATIENT NAME: Hailey Hampton : 1955 MR: [id number] V: [id number] EXAM DATE: ORDERING PHYSICIAN: ADEEL GRACE TECHNOLOGIST: Location: [facility] - [place], [place] Patient: Hailey Hampton : 1955 Visit/Account:[id number] Date of Sevice: 01/16/2019 Technique: CHEST PA LAT HISTORY: Asthma, shortness of breath Comparison studies: January 25, 2018 FINDINGS: Granulomatous changes are again identified. No acute airspace consolidation. Biapical ple ural thickening is noted. There is pulmonary hyperexpansion. Cardiac silhouette is unchanged. IMPRESSION: 1. No acute cardiopulmonary process. 2. Chronic findings as above. Report Dictated By: Ant Avila DO at 01/16/2019 3:09 PM Report E-Signed By: Ant Avila DO at 01/16/2019 3:10 PM WSN:[email or web address]
== END ==
LOC: RAD 14:24
PROVIDERS: ATTEND Internal Medicine
DX: J45.40 Moderate persistent asthma, uncomplicated (principal); R09.02 Hypoxemia
CPT/HCPCS: 71046

== ENCOUNTER 2019-02-09 13:45 | Emergency (ER) | payer BC ==
--- NOTE | 2019-02-09 13:49 | ER Report ---
History and Physical Time Seen By MD: 13:47 HPI/ROS CHIEF COMPLAINT: Shortness of breath HISTORY OF PRESENT ILLNESS: This is a 63-year-old female who presents to the emergency department for shortness breath. Upon arrival the patient is very anxious, coughing she was escorted to the room 7, the initial intake and begun, patient was then wanting to leave, I didn't have the room during this time, the patient thought the blood pressure cuff was too tight, she says she is having an asthma attack and has used her albuterol inhaler twice this morning with no relief. After spending about 15 minutes with the patient, she was able to calm down, I did order a DuoNeb, she states that she was seen this past Wednesday at urgent care, diagnosed with bronchitis however they did give her doxycycline she does have a history of asthma. She also has a manager of pharmacy that she sees for her asthma. She states she was on a steroid taper for 10 days, this finished about 2 weeks ago. She had a productive cough, which has slowed, patient feels that this is very concerning. She's felt warm over the last couple days as well. She denies chest pain, no nausea or vomiting. No headaches or unusual rashes. No recent travel. REVIEW OF SYSTEMS: Constitutional: As above. Eyes: No discharge. ENT: No sore throat. Cardiovascular: No chest pain, no palpitations. Respiratory: As above. Gastrointestinal: No abdominal pain, no vomiting. Genitourinary: No hematuria. Musculoskeletal: No back pain. Skin: No rashes. Neurological: No headache. Allergies: Coded Allergies: amitriptyline (Verified Allergy, Severe, SHORTNESS OF BREATH, 01/25/18) throat closed butorphanol (Verified Allergy, Severe, CONVULSIONS, 01/25/18) droperidol (Verified Allergy, Severe, Convulsions, 01/25/18) duloxetine (Verified Allergy, Severe, RASH, URINARY RETENTION, SHORTNESS OF BREATH, 01/25/18) metoclopramide (Verified Allergy, Intermediate, "Wry Neck", 01/25/18) morphine (Verified Allergy, Intermediate, Severe Headache, Sleeplessness, Anxiety, 01/25/18) cat dander (Verified Allergy, Unknown, Unknown, 01/25/18) grass pollen (Verified Allergy, Unknown, Unknown, 01/25/18) "Justin Grass" Home Meds Active Scripts Methylprednisolone (METHYLPREDNISOLONE) 4 Mg Tab.ds.pk, 4 MG PO DIRECTED, #1 PACK Prov:JEMAL GUADARRAMA [facility]- 02/09/19 Albuterol Sulfate 0.083% (ALBUTEROL SULFATE 0.083%) 2.5 Mg/3 Ml Vial.neb, 2.5 MG INH Q4-6H PRN for SHORTNESS OF BREATH, #20 VIAL Prov:JEMAL GUADARRAMA [facility]- 02/09/19 Lorazepam (LORAZEPAM) 1 Mg Tab, 0.5-1 TAB PO BID PRN for ANXIETY, #20 TAB Prov:ORALIA HALEY MD 07/07/17 Cyanocobalamin (Vitamin B-12) (CYANOCOBALAMIN INJECTION) 1,000 Mcg/1 Ml Vial, 1000 MCG IM DIRECTED, #4 VIAL 6 Refills 1000 mcg x once a week x 2 1000 mcg x EO week x 2 than once a month Prov:ORALIA HALEY MD 07/01/17 Reported Medications Hydroxychloroquine Sulfate (HYDROXYCHLOROQUINE SULFATE) 200 Mg Tablet, BID 01/25/18 Ondansetron 4 Mg Odt (ONDANSETRON 4 MG ODT) 4 Mg Tab.rapdis, PRN 01/25/18 Albuterol Sulfate (VENTOLIN HFA) 18 Gm Inh, 1-2 PUFF INH 3-4XD PRN for DYSPNEA, INH 06/14/17 Fluticasone/Salmeterol (ADVAIR 250-50 DISKUS) 1 Each Disk.w.dev, 1-2 SPRAY IH QDAY 06/14/17 Fluticasone Prop 50 Mcg Ns (FLONASE 50 MCG NS) 16 Gm Theresa.susp, 1-2 SPRAY NS BID, BOT 06/14/17 Montelukast Sodium (SINGULAIR) 10 Mg Tablet, 1 TAB PO QDAY, TAB 06/14/17 Past Medical/Surgical History The patient has a past medical and surgical history of occasional irregular heartbeat, "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 Reviewed Nurses Notes: Yes Smoking Status: Never Smoker Hx Substance Use Disorder: No Hx Alcohol Use: No Constitutional Vital Sign - Last 24 Hours 02/09/19 02/09/19 13:49 15:24 Pulse 115 85 Resp 20 18 B/P (MAP) 137/114 132/88 (103) Pulse Ox 91 86 O2 Delivery Room Air Room Air Physical Exam General Appearance: The patient is alert, has no immediate need for airway protection and no signs of toxicity. Eyes: Pupils equal and round no pallor or injection. ENT, Mouth: Mucous membranes are moist. Respiratory: Mildly coarse in all liriano, and x-ray wheezes in the left upper lobe, otherwise unremarkable. Cardiovascular: Regular rate and rhythm. No murmurs, clicks or rubs. Gastrointestinal: Abdomen is soft and non tender, no masses, bowel sounds normal. Neurological: Alert and oriented 4. Moving all extremities. Following all commands. No focal neuro deficits. Skin: Warm and dry, no rashes. Musculoskeletal: Neck is supple non tender. Extremities are nontender, nonswollen and have full range of motion. Psychological: Very anxious, tearful and agitated with questions. She feels that she has been mistreated by multiple providers. DIFFERENTIAL DIAGNOSIS: After history and physical exam differential diagnosis was considered for shortness of breath including but not limited to pulmonary infectious process, COPD, asthma, pulmonary embolus and congestive heart failure. Medical Decision Making EKG/Imaging Imaging PATIENT NAME: Hailey Hampton : 1955 MR: [id number] V: [id number] EXAM DATE: [id number] ORDERING PHYSICIAN: JEMAL GUADARRAMA TECHNOLOGIST: Location: [facility] Patient: Hailey Hampton : 1955 Visit/Account:[id number] Date of Sevice: 02/09/2019 Exam type: CHEST PA LAT History: cough with asthma Comparison: January 16, 2019. Findings: The lungs are free of acute effusions, infiltrates or edema. Calcified nodules identified in the left lung base. This mild biapical pleural thickening that appears unchanged. Cardiac silhouette is also unchanged. IMPRESSION: 1. No acute cardiopulmonary process is seen Report Dictated By: Ghazal Foley MD at 02/09/2019 2:37 PM Report E-Signed By: Ghazal Foley MD at 02/09/2019 2:39 PM WSN:[email or web address] ED Course/Re-evaluation ED Course The patient was admitted to room. A history and physical obtained. Differential diagnoses were considered. After I was able to calm the patient down, was able to gather some more information, she was given a DuoNeb which did provide significant relief of her symptoms, a two-view chest x-ray is negative for any acute cardiopulmonary process. I did review the results with the patient. I did write an order for a nebulizer and albuterol nebs, he also increase the oxygen usage to 2 L [id number] until she follows up with her manager of pharmacy. She is also given a Medrol Dosepak. Patient was able to ambulate out, she stated that she felt much better, she was discharged and agreeable with the discharge instructions. 02/09/2019 3:00:23 pm I did enter the room to reevaluate patient, she is restin g comfortably in the chair, she states she is feeling better after the breathing treatment. Her anxiety has resolved. Decision to Disposition Date: Feb 09, 2019 Decision to Disposition Time: 15:41 Depart Departure Latest Vital Signs Vital Signs Date Time Temp Pulse Resp B/P (MAP) Pulse Ox O2 Delivery O2 Flow Rate FiO2 02/09/19 15:24 85 18 132/88 (103) 86 Room Air Impression: Primary Impression: Asthma exacerbation Additional Impression: Hypoxia Condition: Improved Disposition: HOME OR SELF-CARE Referrals: NO MOCTEZUMA MD (PCP) New Scripts Methylprednisolone (METHYLPREDNISOLONE) 4 Mg Tab.ds.pk 4 MG PO DIRECTED, #1 PACK Prov: JEMAL GUADARRAMAP-BC 02/09/19 Albuterol Sulfate 0.083% (ALBUTEROL SULFATE 0.083%) 2.5 Mg/3 Ml Vial.neb 2.5 MG INH Q4-6H PRN for SHORTNESS OF BREATH, #20 VIAL Prov: JEMAL GUADARRAMA [employer] 02/09/19 Departure Forms: ER Transition Record, Home Oxygen, Nebulizer RX, Home Oxygen Company Chosen by Patient: [facility] [employer] [facility] Equipment-Oxygen: Portable Oxygen Gas, Nebulizer Reason for Use/Diagnosis: asthma exacerbation, hypoxia Start Date of the Order: Feb 09, 2019 Dosage or Concentration (if applicable) - LPM: 2 Route of Administration (if applicable): Nasal Cannula Frequency of Use: Continuous Duration Home O2 Required: 30 Duration Units: Days Room Air Oxygen Saturation: 87 ER Prescribing Physician's Name: Jemal Guadarrama NPI Numbers for Local ER MDs: Christopher [id number] Medications Reconciliation, Patient Portal Information Patient Instructions: Asthma (ED) Additional Instructions: Take the medrol dose pack as prescribed. Use the nebulizer every 4-6 hours as needed for asthma. Use the oxygen at 2lmp daily until you follow up with your PCP or manager of pharmacy. Drink plenty of water. Follow up with an irrigation installation specialist, as this may be triggering your asthma too. Return to the ED for any other concerns or worsening symptoms. Problem Qualifiers Primary Impression: Asthma exacerbation Asthma severity: mild Asthma persistence: unspecified Qualified Codes: J45.901 - Unspecified asthma with (acute) exacerbation JEMAL GUADARRAMA [employer]-BC Feb 09, 2019 13:49
[2019-02-09] MEDS ORDERED: ALBUTEROL/IPRATROPIUM 3 ML NEB NEB ONE (13:55)
--- NOTE | 2019-02-09 14:47 | RADIOLOGY IMAGING REPORT ---
FACILITY: [facility] PATIENT NAME: Hailey Hampton : 1955 MR: [id number] V: [id number] EXAM DATE: ORDERING PHYSICIAN: TANVIR GUADARRAMA TECHNOLOGIST: Location: Patient: Hailey Hampton : 1955 Visit/Account:[id number] Date of Sevice: 02/09/2019 Exam type: CHEST PA LAT History: cough with asthma Comparison: January 16, 2019. Findings: The lungs are free of acute effusions, infiltrates or edema. Calcified nodules identified in the lef t lung base. This mild biapical pleural thickening that appears unchanged. Cardiac silhouette is al so unchanged. IMPRESSION: 1. No acute cardiopulmonary process is seen Report Dictated By: Ghazal Foley MD at 02/09/2019 2:37 PM Report E-Signed By: Ghazal Foley MD at 02/09/2019 2:39 PM WSN:[email or web address]
[2019-02-09] MEDS ORDERED: METH4TAB66 PO (15:21)
[2019-02-09] MEDS ORDERED: ALBU2.5V36 INH (15:21)
[2019-02-09 15:24] VITALS: BP 132/88
== END 2019-02-09 15:58 | disposition home or self-care (01) ==
LOC: ER 13:54
DX: J45.901 Unspecified asthma with (acute) exacerbation (principal); R09.02 Hypoxemia
CPT/HCPCS: 71046; 94640; 99283; J7620

== ENCOUNTER → 2019-03-17 | Outpatient (REF) | payer BC ==
[~2019-03-17] MED LIST changes: +ALBU2.5V36 INH
[2019-03-17 17:20] LABS: PLATELET COUNT, AUTOMATED 303 K/uL (150-450)
== END ==
LOC: ZZSENDIN 17:02
PROVIDERS: ATTEND Physician Assistant
DX: R60.9 Edema, unspecified (principal)
CPT/HCPCS: 82040; 82247; 82310; 82374; 82435; 82565; 82947; 84075; 84132; 84155; 84295; 84450; 84460; 84520; 85025